=== PATIENT | female | born 1955 | race Caucasian/White ===

== ENCOUNTER 2018-08-18 09:11 | Emergency (ER) | payer BC, OTHER ==
[2018-08-18 10:29] VITALS: BP 144/92
--- NOTE | 2018-08-18 10:32 | UC ---
General HPI - HPI Summary HPI Summary: STEPPED OFF A SIDEWALK AND FELL INJURING HER L HAND. C/O PAIN/SWELLING. OCCURRED YESTERDAY. - History of Current Complaint Stated Complaint: SP FALL-LT HAND INJURY Time Seen by Provider: 08/18/18 10:23 Hx Obtained From: Patient Onset/Duration: Sudden Onset Timing: Constant Aggravating: MOVEMENT Associated Signs & Symptoms: Negative: Fever - Allergy/Home Medications Allergies/Adverse Reactions: Allergies Allergy/AdvReac Type Severity Reaction Status Date / Time No Known Allergies Allergy Verified 08/18/18 10:24 Home Medications: Home Medications Hydrochlorothiazide TAB* [Hydrodiuril TAB*] 12.5 mg DAILY 08/18/18 [History Confirmed 08/18/18] PMH/Surg Hx/FS Hx/Imm Hx Endocrine History: Dyslipidemia Cardiovascular History: Hypertension - Surgical History Surgical History: Yes Surgery Procedure, Year, and Place: cyst removed from breast - Social History Substance Use Type: None Review of Systems All Other Systems Reviewed And Are Negative: Yes Musculoskeletal: Positive: Other: - L AHND PAIN/SWELLING Physical Exam Triage Information Reviewed: Yes Appearance: Well-Appearing Eyes: Positive: Conjunctiva Clear ENT: Positive: Normal ENT inspection Neck: Positive: Supple Respiratory: Positive: Lungs clear Cardiovascular: Positive: RRR Abdomen Description: Positive: Nontender Bowel Sounds: Positive: Present Musculoskeletal: Positive: Other: - LUE: L LATERAL HAND WITH SWELLING AND TENDERNESS. FINGERS HAVE FULL S/V/M FUNCTION. WRIST/SNUFF BOX ARE NON TENDER. REST OF LUE IS NON TENDER AND HAS FULL ROM. Neurological: Positive: Alert Psychological: Positive: Age Appropriate Behavior Skin Exam: Normal Skin: Negative: Rashes Diagnostics - Radiology No standard instances Radiology Interpretation Completed By: Radiologist - 1. OSTEOPENIA. 2. OSTEOARTHRITIS. 3. QUESTIONABLE NONDISPLACED FRACTURE OF THE BASE OF THE FIFTH METACARPAL. RECOMMEND CORRELATION WITH SITE OF PAIN. Course/Dx - Course Course Of Treatment: PA PROCEDURE: ULNAR GUTTER SPLINT WITH FIBERGLASS APPLIED TO THE L HAND(NON DISPLACED FRACTURE), COTTON WAS PLACED BETWEEN 4/5TH FINGERS. S/V FUNCTION TO FINGER TIPS PRE/POST SPLIT. - Diagnoses Provider Diagnosis: Fracture of left hand Discharge - Sign-Out/Discharge Documenting (check all that apply): Patient Departure All imaging exams completed and their final reports reviewed: Yes - Discharge Plan Condition: Stable Disposition: HOME Patient Education Materials: Hand Fracture (ED), Splint Care (ED) Referrals: Todd Graff MD [Medical Doctor] - As Soon As Possible Additional Instructions: KEEP SPLINT ON AND DRY AT ALL TIMES. - Billing Disposition and Condition Condition: STABLE Disposition: Home - Attestation Statements Provider Attestation: I was available for consult. This patient was seen by the CHR[facility]. The patient was not presented to, seen by, or examined by me. -Kenny
== END 2018-08-18 11:54 | disposition home or self-care (01) ==
LOC: UCCORT 09:11
DX: S69.92XA Unspecified injury of left wrist, hand and finger(s), initial encounter (principal); M85.842 Other specified disorders of bone density and structure, left hand; M19.042 Primary osteoarthritis, left hand; W18.31XA Fall on same level due to stepping on an object, initial encounter; Y92.480 Sidewalk as the place of occurrence of the external cause; I10 Essential (primary) hypertension; Z79.899 Other long term (current) drug therapy
CPT/HCPCS: 26755; 99201; G0463